=== PATIENT | female | born 1975 | race Caucasian/White ===

== ENCOUNTER 2021-08-12 08:56 | Outpatient (CLI) | payer OTHER | END 2021-08-12 08:57 | disposition home or self-care (01) | LOC: CSHULT 08:56 | PROVIDERS: ATTEND Family Medicine | DX: R74.01 Elevation of levels of liver transaminase levels (principal); K76.0 Fatty (change of) liver, not elsewhere classified; K80.20 Calculus of gallbladder without cholecystitis without obstruction | CPT/HCPCS: 76705 ==

== ENCOUNTER 2023-08-30 13:28 | Outpatient (CLI) | payer BC | END 2023-08-30 13:29 | disposition home or self-care (01) | LOC: CSHRAD 13:28 | PROVIDERS: ATTEND Surgery | DX: E66.01 Morbid (severe) obesity due to excess calories (principal) | CPT/HCPCS: 74220 ==